=== PATIENT | female | born 1995 | race Caucasian/White ===

== ENCOUNTER 2020-03-27 13:07 | Emergency (ER) | payer OTHER ==
[~2020-03-27] VITALS: Ht 170.2 cm; Wt 93.2 kg
[~2020-03-27 13:07] MED LIST: AXERT6.25 MG PO; DEPAKOTE500 MG PO; LEXAPRO 10MG10 MG PO
[2020-03-27 13:12] VITALS: TEMP 98
[2020-03-27 13:48] VITALS: BP 129/81; PULSE 86
== END 2020-03-27 13:55 | disposition home or self-care (01) ==
LOC: COL.ER 13:07
DX: G40.909 Epilepsy, unspecified, not intractable, without status epilepticus (principal)

== ENCOUNTER 2021-04-02 07:34 | Inpatient (IN) | payer BC ==
[~2021-04-02] VITALS: Ht 170.2 cm; Wt 100.5 kg
[2021-04-03] VITALS (17 sets, daily range): BP systolic 97–147; BP diastolic 64–92; PULSE 62–88; TEMP 97.6–98.3
[2021-04-03] MEDS ORDERED: ZOLOFT 100MG100 MG PO (05:16)
[2021-04-03] MEDS ORDERED: INDERAL 10MG10 MG PO (05:16)
[2021-04-03] MEDS ORDERED: MAG OX 250 (05:17)
[2021-04-03] MEDS ORDERED: VALTREX1 GM PO (05:17)
[2021-04-03] MEDS ORDERED: PRENATAL TABLET PO (05:18)
[2021-04-03] MEDS ORDERED: ZOFRAN ODT4 MG PO (05:18)
[2021-04-03 06:30] LABS: BASO % 0.4 % (0.0-2.0); EOS % 0.4 % (0.0-4.0); GRAN # 7.9 K/mm3 (1.4-6.5); GRAN % 73.7 % (42.2-75.2); HEMOGLOBIN 11.1 g/dl (12.5-16.0); LYMPH % 18.3 % (20.0-51.0); MEAN CELL VOLUME 90 fl (80.0-100.0); MEAN CORPUSCULAR HEMOGLOBIN 31 pg (27-31); MEAN CORPUSCULAR HGB CONC 35 g/dl (33.0-37.0); MEAN PLATELET VOLUME 11.2 fl (7.4-10.4); MONO # 0.7 K/mm3 (0.1-0.6); MONO % 6.5 % (1.7-9.3); PLATELET COUNT 220 K/mm3 (130-400); RED BLOOD COUNT 3.57 M/mm3 (4.10-5.30); REDCELL DISTRIBUTION WIDTH-CV 13.2 % (11.5-14.5)
[2021-04-03 06:33] LABS: HEMATOCRIT 32.1 % (37.0-47.0)
--- NOTE | 2021-04-03 06:57 | NUR ---
0630 PREP DONE. PATIENT READY FOR OR.
[2021-04-03 10:44] LABS: TRICYCLIC ANTIDEPRESS URINE NEGATIVE
--- NOTE | 2021-04-03 11:34 | NUR ---
REPORT GIVEN TO Aliyah LAMA LPN TO ASSUME CARE AT THIS TIME
[2021-04-03] MEDS ORDERED: IBU600 MG PO (12:25)
[2021-04-03] MEDS ORDERED: ROXICODONE 55 MG/TAB PO (12:26)
[2021-04-04 03:00] VITALS: BP 123/74; PULSE 78; TEMP 97.8
[2021-04-04 07:39] VITALS: BP 157/92; PULSE 87; TEMP 97.7
[2021-04-04 10:02] VITALS: BP 133/77; PULSE 71
--- NOTE | 2021-04-04 13:23 | NUR ---
Slitter And Cutter Operator met with patient to discuss resource and services available. SW received consult for concerns for depression. Patient's , Erickson and father, Ilia are at bedside. Patient advised she has good supports and her family lives nearby in [place]. Erickson advised his family lives in [place] but plans to visit soon. This is patient's first child and she reports she has all the supplies needed for baby at home. Patient is formula feeding and advised she would like to apply for [facility]. SW provided [facility] Resource Guide and directed her to contact information for the [facility]. Patient is not employed at this time and plans to continue to stay home with baby. SW addressed history of depression and patient states it is well managed through medication that is prescribed by her psychiatrist in [place]. Patient also has a therapist in [place] that she is established with and has access to through telehealth. Patient had negative UDS at time of delivery. Infant cord blood pending. Patient has no concerns about returning home at this time. DEJAH spoke with RN who had no concerns.
[2021-04-04 16:00] VITALS: BP 136/84; PULSE 81; TEMP 97.7
[2021-04-04 19:30] VITALS: BP 148/90; PULSE 84; TEMP 98
[2021-04-05 07:37] VITALS: BP 144/90; PULSE 80; TEMP 97.3
--- NOTE | 2021-04-06 16:03 | NUR ---
Baby cord blood results were negative for illegal drugs.
== END 2021-04-05 10:55 | disposition home or self-care (01) | DRG 787 ==
LOC: LDR 04-03 04:48 → OB 04-03 04:48 → LDR 04-03 07:33 → OB 04-03 09:20 → LDR 04-03 11:52 → OB 04-05 10:55
PROVIDERS: Obstetrics & Gynecology; ADMIT Obstetrics & Gynecology
PROC: 10D00Z1 Extraction of Products of Conception, Low, Open Approach (ICD-10-PCS; principal; 2021-04-03)
DX: O99.02 Anemia complicating childbirth (principal); O98.32 Other infections with a predominantly sexual mode of transmission complicating childbirth; D64.9 Anemia, unspecified; O99.344 Other mental disorders complicating childbirth; F41.9 Anxiety disorder, unspecified; F32.A Depression, unspecified; O99.820 Streptococcus B carrier state complicating pregnancy; O77.0 Labor and delivery complicated by meconium in amniotic fluid; A60.09 Herpesviral infection of other urogenital tract; O99.214 Obesity complicating childbirth; Z3A.39 39 weeks gestation of pregnancy; Z37.0 Single live birth
CPT/HCPCS: J1100; J1885; J2175; J2405; J2590; J7120